=== PATIENT | male | born 1950 | race African-American/Black ===

== ENCOUNTER 2019-07-15 15:31 | Emergency (ER) | payer OTHER ==
[2019-08-05 13:16] LABS: ANION GAP 3 (5-15); ASPARTATE AMINOTRANSFERASE 58 U/L (10-37); CALCIUM 8.8 mg/dL (8.4-11.0); CHLORIDE 105 mmol/L (98-107); GLUCOSE 83 mg/dL (70-99); SODIUM SERUM 141 mmol/L (136-145); TOTAL BILIRUBIN 0.6 mg/dL (0.0-1.0); UREA NITROGEN, BLOOD 7 mg/dL (8-21)
[2019-08-05 13:17] LABS: ACETAMINOPHEN < 1 ug/mL (1-30); ALANINE AMINOTRANSFERASE 59 U/L (12-78); ALBUMIN 3.1 g/dL (3.4-4.8); ALCOHOL, BLOOD < 3 mg/dL (<10); CHOLESTEROL 153 mg/dL (<200)
[2019-08-05 13:18] LABS: PROTHROMBIN TIME 9.7 SECS (9.5-12.5)
[2019-08-05 13:19] LABS: EOSINOPHILS % (AUTO) 3.5 % (0.0-4.0); HEMATOCRIT 36.5 % (36-54); HEMOGLOBIN 12.4 g/dL (14.0-18.0); LYMPHOCYTES % (AUTO) 49.3 % (20.5-51.5); MEAN CORPUSCULAR HEMOGLOBIN 31 pg (27-31); MEAN CORPUSCULAR HGB CONC 34 % (32-36); MEAN CORPUSCULAR VOLUME 91 fL (79.0-98.0); MONOCYTES % (AUTO) 11.3 % (1.7-9.3); NEUTROPHILS % (AUTO) 35.4 % (40.0-70.0); PLATELET COUNT (AUTO) 216 K/uL (130-430); RED CELL DISTRIBUTION WIDTH 13.3 % (9.0-15.0); WHITE BLOOD COUNT (AUTO) 6.1 K/uL (4.8-10.8)
[2019-08-05 13:20] LABS: BASOPHILS % (AUTO) 0.5 % (0.0-2.0); EOSINOPHILS # (AUTO) 0.2 K/uL (0.0-0.4); MONOCYTES # (AUTO) 0.7 K/uL (0.0-1.0); NEUTROPHILS # (AUTO) 2.2 K/uL (1.8-7.7)
== END 2019-07-15 18:53 | disposition home or self-care (01) ==
LOC: SED 15:31
DX: R06.2 Wheezing (principal); J44.9 Chronic obstructive pulmonary disease, unspecified; F17.290 Nicotine dependence, other tobacco product, uncomplicated; Z02.89 Encounter for other administrative examinations
CPT/HCPCS: 36415; 80053; 82465; 85025; 85610; 85730; 99283; G0480; G0481; G0482

== ENCOUNTER 2019-09-26 11:26 | Inpatient (IN) | payer OTHER ==
[~2019-09-26] VITALS: Ht 167.6 cm; Wt 59.0 kg
--- NOTE | 2019-09-26 11:37 | NUR ---
Lotus kaiser in ED - 09/26/19 at 1309 by [email or web address] SIMI Hernandez at bedside examining patient.
--- NOTE | 2019-09-26 11:52 | NUR ---
Patient to ER bed 5 to gown for evaluation. Side rails up. Report given to TIMI Dickinson.
[2019-09-26 11:53] VITALS: BP_SYST 108
--- NOTE | 2019-09-26 11:55 | NUR ---
Patient brought in by BLS in the ED for increased agitation. Patient is calm and collected during the assessment. Denied any chest pain or shortness of breath. Denied any fevers, nausea, vomiting, or chills. Patient is alert and oriented x2, respirations even and unlabored, speaking in full sentences, ambulating with a steady gait. VSS, pain level 0/10. Informed of wait time. Instructed to notify ED staff for any changes in condition or worsening of symptoms. Patient verbalized understanding.
--- NOTE | 2019-09-26 11:57 | NUR ---
ER Dr. Hernandez at bedside examining patient.
[2019-09-26] MEDS ORDERED: GUAI5SYR PO (12:11)
[2019-09-26] MEDS ORDERED: LACT-47 PO (12:11)
[2019-09-26] MEDS ORDERED: MORP10SO PO (12:11)
[2019-09-26] MEDS ORDERED: VALP250S3 PO (12:11)
[2019-09-26] MEDS ORDERED: BISA10SU61 RC (12:11)
[2019-09-26] MEDS ORDERED: HYOS-6 PO (12:11)
[2019-09-26] MEDS ORDERED: IPRA3AMP9 INH (12:11)
[2019-09-26] MEDS ORDERED: ALBU2.5V7 INH (12:11)
[2019-09-26] MEDS ORDERED: [UNRECOGNIZED DRUG - OTHER] RC (12:11)
[2019-09-26] MEDS ORDERED: RISP0.5T5 PO (12:11)
--- NOTE | 2019-09-26 12:11 | NUR ---
Medication reconciliation completed with information provided by Polly Patterson. Any prior medication reconciliation on file was reviewed and corrected.
[2019-09-26 12:16] LABS: BASOPHILS # (AUTO) 0.1 K/uL (0.0-0.2); BASOPHILS % (AUTO) 0.8 % (0.0-2.0); EOSINOPHILS # (AUTO) 0.1 K/uL (0.0-0.4); EOSINOPHILS % (AUTO) 1.7 % (0.0-4.0); HEMATOCRIT 39.2 % (36-54); LYMPHOCYTES # (AUTO) 1.9 K/uL (1.0-5.5); MEAN CORPUSCULAR HEMOGLOBIN 30 pg (27-31); MEAN CORPUSCULAR HGB CONC 33 % (32-36); MEAN CORPUSCULAR VOLUME 91 fL (79.0-98.0); MONOCYTES # (AUTO) 0.8 K/uL (0.0-1.0); MONOCYTES % (AUTO) 12.4 % (1.7-9.3); NEUTROPHILS # (AUTO) 3.3 K/uL (1.8-7.7); NEUTROPHILS % (AUTO) 54.1 % (40.0-70.0); PLATELET COUNT (AUTO) 244 K/uL (130-430); RED BLOOD CELL COUNT(AUTO) 4.31 MIL/uL (4.2-6.2); RED CELL DISTRIBUTION WIDTH 13.6 % (9.0-15.0); WHITE BLOOD COUNT (AUTO) 6.1 K/uL (4.8-10.8)
--- NOTE | 2019-09-26 12:30 | NUR ---
ECG done at bedside as ordered by Dr. Hernandez. Patient tolerated the procedure well. Report given to .
[2019-09-26 12:32] LABS: ANION GAP 2 (5-15); CALCIUM 8.5 mg/dL (8.4-11.0); CHLORIDE 106 mmol/L (98-107); CREATININE 0.96 mg/dL (0.55-1.30); GLUCOSE 85 mg/dL (70-99); POTASSIUM 3.9 mmol/L (3.5-5.1); SODIUM SERUM 136 mmol/L (136-145); UREA NITROGEN, BLOOD 14 mg/dL (8-21)
[2019-09-26 12:37] LABS: ALANINE AMINOTRANSFERASE 57 U/L (12-78); ALBUMIN 2.9 g/dL (3.4-4.8); ALCOHOL, BLOOD < 3 mg/dL (<10); ASPARTATE AMINOTRANSFERASE 42 U/L (10-37); TOTAL BILIRUBIN 0.5 mg/dL (0.0-1.0)
--- NOTE | 2019-09-26 12:50 | NUR ---
Urine specimen collected and dropped off at the lab. MRSA swabbed done.
--- NOTE | 2019-09-26 12:55 | NUR ---
# 18 gauge angiocath placed to RAC. Use of asceptic technique. Opsite placed over site. Blood return noted. Flushed with 10 cc of normal saline. No evidence of infiltration noted. Patient tolerated well.
[2019-09-26 13:11] LABS: BARBITURATE, URINE NEGATIVE (NEG <=200); BENZODIAZEPINE, URINE NEGATIVE (NEG <=150); CANNABINOID, URINE NEGATIVE (NEG <=50); COCAINE, URINE NEGATIVE (NEG <=150); METHAMPHETAMINES SCREEN,URINE NEGATIVE (NEG <=500); OPIATE, URINE NEGATIVE (NEG <=100); PHENCYCLIDINE SCREEN,URINE NEGATIVE (NEG <=25); UR TRICYCLIC ANTIDEPRESSANTS NEGATIVE (NEG <=300); URINE AMPHETAMINE NEGATIVE (NEG <=500); URINE METHADONE NEGATIVE (NEG <=200); URINE OXYCODONE SCREEN NEGATIVE (NEG <=100); URINE PROPOXYPHENE SCREEN NEGATIVE (NEG <=300)
[2019-09-26 13:13] LABS: ACETAMINOPHEN < 1 ug/mL (1-30)
--- NOTE | 2019-09-26 14:46 | NUR ---
Received admitting orders.
--- NOTE | 2019-09-26 14:57 | NUR ---
Patient will be admitted to care of Dr. Malone. Admitted to Medsurg unit. Will go to room 104B. Belongings list completed. Complete and up to date summary report printed. SBAR report given to TIMI Ventura over the phone with opportunity for questions.
[2019-09-26] MEDS ORDERED: LORazepam 2 MG/ML VIAL IVP PRN (16:00)
[2019-09-26] MEDS ORDERED: DOCUSATE SODIUM 100 MG CAPSULE PO PRN (16:00)
[2019-09-26] MEDS ORDERED: IPRATROPIUM/ALBUTEROL SULFATE 3 ML AMPUL.NEB (DUONEB) INH PRN (16:00)
[2019-09-26] MEDS ORDERED: ONDANSETRON HCL 4 MG/2 ML VIAL IVP PRN (16:00)
[2019-09-26] MEDS ORDERED: MUPIROCIN 2% TOPICAL OINTMENT 22 GM NS PRN (16:00)
[2019-09-26] MEDS ORDERED: ZOLPIDEM TARTRATE 5 MG TABLET PO PRN (16:00)
[2019-09-26] MEDS ORDERED: MORPHINE 2 MG/ML INJ. SYRINGE IVP PRN ×2 (16:00)
[2019-09-26] MEDS ORDERED: ALBUTEROL SULFATE 0.083% 2.5 MG/3 ML VIAL.NEB INH PRN (16:00)
[2019-09-26] MEDS ORDERED: POTASSIUM CHLORIDE 20 MEQ TAB.PRT.SR PO PRN (16:00)
[2019-09-26] MEDS ORDERED: MAGNESIUM SULFATE 50 ML IV PRN (16:00)
[2019-09-26] MEDS ORDERED: ACETAMINOPHEN 325 MG TABLET PO PRN (16:00)
[2019-09-26 16:25] VITALS: BP_SYST 118
--- NOTE | 2019-09-26 16:30 | NUR ---
ADMISSION: RECEIVED PT FROM ER, DX: RISK FOR INJURY, R/T ACUTE PSYCHOSIS, PT IS POOR HISTORIAN, UNABLE TO ANSWER SIMPLE QUESTIONS, SUCH , WHAT IS YOUR NAME? VSS, AFEBRILE, NON-COMPLAINT WITH TX, PURPOSELY REMOVED IV SITE AND REFUSES TO HAVE IT REINSERTED, WILL NOTIFY M.D., ORIENTED TO T.V. AND CALL LIGHT, PLACED WITHIN REACH, WILL CONT' TO MONITOR AND ASSESS.
--- NOTE | 2019-09-26 16:56 | NUR ---
CONSULT PSYCH ACUTE PSYCHOSIS DR ADAIR [phone] S/[facility] OFFICE FACESHEET FAXED TO [phone]
--- NOTE | 2019-09-26 17:30 | NUR ---
IV SITE: PT REFUSED TO ALLOW IV TO BE INSERTED AT THIS TIME, REFUSES VITAL SIGNS TO BE TAKEN, WILL INFORM M.D., WILL CONT' TO MONITOR AND ASSESS.
--- NOTE | 2019-09-26 18:00 | NUR ---
END OF SHIFT: PT OBSERVED WHILE LYING IN BED, NO SIGNIFICANT CHANGES, REFUSE VITAL SIGNS AND ALL PROCEDURES, EXPLAINED TO PT THIS IS PART OF HIS TX TO IMPROVE CONDITION SO HE MAY RETURNED HOME, PT CONT' TO HAVE PSYCHOTIC EPISODES, CALL LIGHT PLACED NEXT TO BED, INSTRUCTED TO UTILIZE IF HELP IS NEEDED, ROOM CLOSE TO NURSES STATION, WILL CONT' TO MONITOR, WILL ENDORSE TO STAMP PRESSER NURSE.
[2019-09-26 20:00] VITALS: BP_SYST 119
--- NOTE | 2019-09-26 20:00 | NUR ---
A/A BUT CONFUSED.REFUSED TO CHANGE HIS CLOTHES TO HOSPITAL GOWN.NO FACIAL GRIMACING NOTED.V/S STABLE.AFEBRILE. NO SOB NOTED;O2 SAT ON RA 96 %.
[2019-09-26] MEDS: VALPROIC ACID ORAL SYRUP 250 MG/5 ML UDC PO SCH (21:00)
[2019-09-26] MEDS: HEPARIN SODIUM,PORCINE 5000 UNITS/ML VIAL SUBCUT SCH (21:00)
--- NOTE | 2019-09-26 21:00 | NUR ---
REFUSED DUE MEDS.
--- NOTE | 2019-09-26 22:00 | NUR ---
RESTING COMFORTABLY IN NO ACUTE DISTRESS.
--- NOTE | 2019-09-27 | NUR ---
REFUSED V/S @ THIS TIME.
--- NOTE | 2019-09-27 02:00 | NUR ---
RESTING COMFORTABLY IN NO ACUTE DISTRESS.
--- NOTE | 2019-09-27 04:00 | NUR ---
ASLEEP IN NO ACUTE DISTRESS.
--- NOTE | 2019-09-27 06:45 | NUR ---
ENDORSED A/A CONFUSED.SAFETY MAINTAINED.CALL LIGHT WITHIN REACH.
--- NOTE | 2019-09-27 07:01 | NUR ---
Nutrition Update Benton Scale 18 noted. Pt admitted for Acute Psychosis Diet: Regular BMI: 21 kg/m2 RD to follow per nutrition care standards.
--- NOTE | 2019-09-27 07:30 | NUR ---
AM ROUNDS: PATIENT LYING ON THE BED AWAKE,CONFUSED AT TIMES. CALL LIGHT WITH IN REACH. BED LOCKED AT LOWEST POSITION. SAFETY MEASURES RENDERED.
[2019-09-27 08:02] VITALS: BP_SYST 123
[2019-09-27] MEDS: HEPARIN SODIUM,PORCINE 5000 UNITS/ML VIAL SUBCUT SCH ×2 (09:00→21:00)
[2019-09-27] MEDS: VALPROIC ACID ORAL SYRUP 250 MG/5 ML UDC PO SCH ×2 (09:00→21:00)
--- NOTE | 2019-09-27 10:08 | NUR ---
SS NOTES/ATTEMPT: MAINTENANCE ENGINEER attempted to meet with patient who refuses to respond to his name and refuses to answer questions. MAINTENANCE ENGINEER spoke with production honing machine operator to request paper tray for patient. SS will follow up.
--- NOTE | 2019-09-27 11:43 | NUR ---
Vital signs: Patient refused vital signs to be taken. Md aware is aware that patient non compliant due to psyche problem.
--- NOTE | 2019-09-27 12:10 | NUR ---
LUNCH: SET UP LUNCH TRAY,PATIENT EATING WELL. NO PROBLEM.
--- NOTE | 2019-09-27 14:00 | NUR ---
RN ROUNDS: RESTING. NO ACUTE DISTRESS.
--- NOTE | 2019-09-27 16:31 | NUR ---
RN ROUNDS: PATIENT WATCHING TV. NO DISTRESS.
--- NOTE | 2019-09-27 19:00 | NUR ---
CLOSING NOTES: ENDORSED TO NIGHT NURSE VIANCA.DR ADAIR SEEN PATIENT THIS EVENING AND OK CORBIN PSYCHE WITH 51/50 ,CASE MGT TO ARRANGE TRANSFER IN AM PER MD ORDER.NO ACUTE DISTRESS. SAFETY MEASURES RENDERED.
--- NOTE | 2019-09-27 19:54 | NUR ---
Initial note: Received report from dayshift RN. Patient is awake in bed watching TV, no acute distress. Even and unlabored respirations, tolerating room air. IV site absent, physician is aware. Call light with patient. Safety, fall precautions in place. Will continue with plan of care.
[2019-09-27 20:00] VITALS: BP_SYST 121
--- NOTE | 2019-09-27 21:48 | NUR ---
Refused medications: Patient refused medications despite education. Vital signs WNL. Safety, fall precautions in place. Will continue to monitor.
--- NOTE | 2019-09-28 00:37 | NUR ---
Rounds: Patient is watching TV. No acute distress. Refused midnight vital signs check despite education. Call light with patient. Will continue monitoring.
--- NOTE | 2019-09-28 03:16 | NUR ---
Rounds: Patient is sleeping in bed. No acute distress. Tolerating room air, even and unlabored breathing. Call light with patient. Will continue monitoring.
--- NOTE | 2019-09-28 06:05 | NUR ---
Closing note: Patient is sleeping comfortably in bed. No acute distress. Tolerating room air. Patient has been refusing to provide urine sample for urinalysis despite educational efforts. All needs met. Safety, fall precautions observed. Will endorse care to dayshift RN.
--- NOTE | 2019-09-28 08:00 | NUR ---
awake,alert,forgetful and confused,vss,no c/o pain or discomfort,needs attended,safety maintained.continue to monitor pt.
[2019-09-28 08:30] VITALS: BP_SYST 113
[2019-09-28] MEDS: HEPARIN SODIUM,PORCINE 5000 UNITS/ML VIAL SUBCUT SCH ×2 (09:00→21:00)
[2019-09-28] MEDS: VALPROIC ACID ORAL SYRUP 250 MG/5 ML UDC PO SCH ×2 (09:00→21:00)
--- NOTE | 2019-09-28 10:00 | NUR ---
pt resting well in bed.hourly rounds made,safety maintained.
--- NOTE | 2019-09-28 12:00 | NUR ---
vss,pt ambulatory in the room,refused am meds.remains confused,continue to monitor pt.
--- NOTE | 2019-09-28 12:10 | NUR ---
SS NOTES/PSYCH PLACEMENT: SS faxed clinicals to Jihan Alicea for review.
[2019-09-28 13:00] VITALS: BP_SYST 105
--- NOTE | 2019-09-28 14:00 | NUR ---
pt resting well in bed,no acute distress observed.
--- NOTE | 2019-09-28 16:00 | NUR ---
pt refused vital sign said "you owe me money."received phone call from [facility] and spoke to poppy,and updated her of pt condition.
--- NOTE | 2019-09-28 18:00 | NUR ---
pt eating well for dinner,no n/v.hourly rounds made,safety maintained.
[2019-09-28 19:13] VITALS: BP_SYST 118
--- NOTE | 2019-09-28 19:24 | NUR ---
pt sleeping quietly in bed,no event througout am shift,report endorsed to box turner staff.
--- NOTE | 2019-09-28 21:03 | NUR ---
Rounds: Patient is resting in bed, no acute distress. Tolerating room air. Refused 20:00 vital signs check. Call light with patient. Will continue monitoring.
[2019-09-29 00:53] VITALS: BP_SYST 118
--- NOTE | 2019-09-29 00:55 | NUR ---
Rounds: Patient is awake in bed, watching TV. No acute distress. Midnight vital signs WNL. Call light with patient. Will continue monitoring.
--- NOTE | 2019-09-29 02:27 | NUR ---
[facility] CALLED AND SET UP AMBULANCE BUSINESS INTELLIGENCE ARCHITECT IS 0630 . GOT ROOM FROM [facility] AND HE IS GOING TO ROOM 50A. FOR REPORT SPOKE WITH DAVID
--- NOTE | 2019-09-29 03:09 | NUR ---
Rounds: Patient is sleeping. No acute distress. Call light with patient. Will continue monitoring.
--- NOTE | 2019-09-29 03:40 | NUR ---
Called [facility], s/w [place], Will Call was arranged
--- NOTE | 2019-09-29 03:59 | NUR ---
Transfer acknowledgment: Called placed to patient's conservator Az Donnelly [phone], conservator information obtained from previous facility records. Spoke with Ana Dukes, on-call from [facility]. Informed her that patient is under [phone] hold. Updates regarding patient care provided to on-call. Obtained consent for transfer to [facility] with 2 RN witnesses. Form placed in chart, copy placed in discharge packet.
--- NOTE | 2019-09-29 04:11 | NUR ---
[facility] CALLED THEM BACK AND SET UP [facility]RISTM[facility]LL RINGER FOR [phone]
--- NOTE | 2019-09-29 04:35 | NUR ---
Report called: Spoke with Elidia at [facility], called number [phone]. Full SBAR report given.
--- NOTE | 2019-09-29 06:39 | NUR ---
Closing note: Patient is sleeping comfortably in bed. No acute distress. Tolerating room air. All needs met. Safety, fall precautions observed. [facility] Addendum: 09/29/19 at 0644 by Nakul Oakes RN Completed discharge packet for transfer to [facility] placed in nurses' station.
--- NOTE | 2019-09-29 07:04 | NUR ---
PT TRANSFERRED Report given to Elidia at [facility]. Report given to Kim EMT of [facility]. Transfer packet with Transfer Orders and Medication Reconciliation form given to EMT with report. Exitcare provided. [facility] ID band removed, replaced with ID band with pt's name and . All belongings sent with patient. Patient left floor via gurney escorted by EMT in no distress.
[2019-09-29 10:50] VITALS: BP_SYST 118
== END 2019-09-29 07:00 | DRG 57 ==
LOC: SED 11:26 → EDBD 14:34 → SMU 14:34
PROVIDERS: ADMIT General Practice; ATTEND General Practice
DX: G30.9 Alzheimer's disease, unspecified (principal); F23 Brief psychotic disorder; E44.0 Moderate protein-calorie malnutrition; F02.80 Dementia in other diseases classified elsewhere, unspecified severity, without behavioral disturbance, psychotic disturbance, mood disturbance, and anxiety; F25.0 Schizoaffective disorder, bipolar type; J44.9 Chronic obstructive pulmonary disease, unspecified; K59.00 Constipation, unspecified; Z79.899 Other long term (current) drug therapy; Z68.21 Body mass index [BMI] 21.0-21.9, adult
CPT/HCPCS: 36415; 80053; 80164-TC; 80307; 85025; 87081; 93005; 94760; 99285; G0480; G0481; G0482; J1644

== ENCOUNTER 2019-11-18 08:45 | Emergency (ER) | payer OTHER, MEDICAID ==
[~2019-11-18] VITALS: Ht 188 cm; Wt 86.2 kg
[2019-11-18 08:45] VITALS: BP_SYST 122
[~2019-11-18 08:45] MED LIST: ALBU2.5V7 INH; BISA10SU61 RC; GUAI5SYR PO; HYOS-6 PO; IPRA3AMP9 INH; LACT-47 PO; MORP10SO PO; RISP0.5T5 PO; VALP250S3 PO; [UNRECOGNIZED DRUG - OTHER] RC
[2019-11-18 09:57] VITALS: BP_SYST 132
== END 2019-11-18 09:57 ==
LOC: SED 08:45
DX: F29 Unspecified psychosis not due to a substance or known physiological condition (principal); R45.6 Violent behavior; J44.9 Chronic obstructive pulmonary disease, unspecified; F17.200 Nicotine dependence, unspecified, uncomplicated; Z88.6 Allergy status to analgesic agent
CPT/HCPCS: 99285

== ENCOUNTER 2020-09-03 14:38 | Emergency (ER) | payer OTHER, MEDICAID ==
[~2020-09-03] VITALS: Ht 165.1 cm; Wt 64.4 kg
[2020-09-03 16:20] LABS: BASOPHILS # (AUTO) 0.1 K/uL (0.0-0.2); BASOPHILS % (AUTO) 1.7 % (0.0-2.0); EOSINOPHILS # (AUTO) 0.1 K/uL (0.0-0.4); EOSINOPHILS % (AUTO) 2.4 % (0.0-4.0); HEMATOCRIT 39.7 % (36-54); HEMOGLOBIN 13.7 g/dL (14.0-18.0); LYMPHOCYTES # (AUTO) 2.2 K/uL (1.0-5.5); MEAN CORPUSCULAR HEMOGLOBIN 32 pg (27-31); MEAN CORPUSCULAR HGB CONC 34 % (32-36); MEAN CORPUSCULAR VOLUME 92 fL (79.0-98.0); MONOCYTES # (AUTO) 0.6 K/uL (0.0-1.0); MONOCYTES % (AUTO) 10.5 % (1.7-9.3); NEUTROPHILS # (AUTO) 2.8 K/uL (1.8-7.7); NEUTROPHILS % (AUTO) 47.4 % (40.0-70.0); PLATELET COUNT (AUTO) 208 K/uL (130-430); RED BLOOD CELL COUNT(AUTO) 4.34 MIL/uL (4.2-6.2); RED CELL DISTRIBUTION WIDTH 12.9 % (9.0-15.0); WHITE BLOOD COUNT (AUTO) 5.8 K/uL (4.8-10.8)
[2020-09-03 16:26] LABS: ANION GAP 4 (5-15); CALCIUM 8.7 mg/dL (8.4-11.0); CHLORIDE 103 mmol/L (98-107); CREATININE 0.98 mg/dL (0.55-1.30); GLUCOSE 78 mg/dL (70-99); POTASSIUM 4.9 mmol/L (3.5-5.1); SODIUM SERUM 138 mmol/L (136-145); UREA NITROGEN, BLOOD 14 mg/dL (8-21)
[2020-09-03 16:31] LABS: ALANINE AMINOTRANSFERASE 75 U/L (12-78); ALBUMIN 3.2 g/dL (3.4-4.8); ASPARTATE AMINOTRANSFERASE 59 U/L (10-37); TOTAL BILIRUBIN 0.3 mg/dL (0.0-1.0)
[2020-09-03 16:33] LABS: ACETAMINOPHEN < 1 ug/mL (1-30); ALCOHOL, BLOOD < 3 mg/dL (<10)
[2020-09-03 16:50] LABS: CHOLESTEROL 177 mg/dL (<200); HDL CHOLESTEROL 74 mg/dL (>45); LDL CHOLESTEROL 89 mg/dL (<100); TRIGLYCERIDES 54 mg/dL (30-150)
[2020-09-03 18:05] LABS: BILIRUBIN,URINE NEGATIVE (NEGATIVE); BLOOD, URINE NEGATIVE (NEGATIVE); CLARITY/URINE CLEAR (CLEAR); COLOR,URINE YELLOW (YELLOW); GLUCOSE,URINE NEGATIVE (NEGATIVE); KETONES,URINE NEGATIVE (NEGATIVE); LEUKOCYTE ESTERASE ,URINE TRACE (NEGATIVE); NITRITE, URINE NEGATIVE (NEGATIVE); PROTEIN URINE NEGATIVE (NEGATIVE); UROBILINOGEN,URINE 0.2 (0.2-1.0)
[2020-09-03 18:18] LABS: BARBITURATE, URINE NEGATIVE (NEG <=200); BENZODIAZEPINE, URINE NEGATIVE (NEG <=150); CANNABINOID, URINE NEGATIVE (NEG <=50); COCAINE, URINE NEGATIVE (NEG <=150); METHAMPHETAMINES SCREEN,URINE NEGATIVE (NEG <=500); OPIATE, URINE NEGATIVE (NEG <=100); PHENCYCLIDINE SCREEN,URINE NEGATIVE (NEG <=25); UR TRICYCLIC ANTIDEPRESSANTS NEGATIVE (NEG <=300); URINE AMPHETAMINE NEGATIVE (NEG <=500); URINE METHADONE NEGATIVE (NEG <=200); URINE OXYCODONE SCREEN NEGATIVE (NEG <=100); URINE PROPOXYPHENE SCREEN NEGATIVE (NEG <=300)
[2020-09-03 18:45] LABS: BACTERIA,URINE FEW /HPF (None Seen); MUCUS,URINE None Seen /LPF (None Seen); RBC,URINE 0-3 /HPF (0-3)
[2020-09-03 19:29] VITALS: BP_SYST 132
== END 2020-09-03 19:29 ==
LOC: EEVIPCON 14:38 → SED 14:38
DX: Z02.89 Encounter for other administrative examinations (principal); J44.9 Chronic obstructive pulmonary disease, unspecified; Z88.5 Allergy status to narcotic agent; Z79.899 Other long term (current) drug therapy; Z20.822 Contact with and (suspected) exposure to COVID-19
CPT/HCPCS: 36415; 80053; 80061; 80307; 81000; 83036; 85025; 87081; 87086; 87426; 99285; G0480; G0481; G0482